=== PATIENT | female | born 1960 | race Caucasian/White ===

== ENCOUNTER 2023-03-15 12:36 | Observation (INO) | payer BC ==
[~2023-03-15] VITALS: Ht 172.7 cm; Wt 110.5 kg
--- NOTE | 2023-03-15 13:32 | NUR ---
XR to pt bedside at this time
[2023-03-15 13:46] LABS: BASOPHILS # (AUTO) 0.1 X10'3 (0-0.2); EOSINOPHILS % (AUTO) 0.6 % (0-6); HEMATOCRIT 42.6 % (35.0-45.0); HEMOGLOBIN 14.2 g/dl (12.0-16.0); LYMPHOCYTES # (AUTO) 1.6 X10'3 (1.1-4.8); LYMPHOCYTES % (AUTO) 26.2 % (21-51); MEAN CORPUSCULAR HEMOGLOBIN 30.9 PG (27.0-31.0); MEAN CORPUSCULAR HGB CONC 33.3 g/dL (33.0-36.5); MEAN CORPUSCULAR VOLUME 92.9 FL (78-98); MEAN PLATELET VOLUME 8.6 FL (7.4-10.4); MONOCYTES # (AUTO) 0.6 X10'3 (0-0.9); MONOCYTES % (AUTO) 9.2 % (2-12); NEUTROPHILS # (AUTO) 3.9 X10'3 (1.8-7.7); PLATELET COUNT 194 X10'3 (140-440); RED BLOOD COUNT 4.59 X10'6 (4.20-5.60); WHITE BLOOD COUNT 6.2 X10'3 (4.5-11.0)
[2023-03-15 14:03] LABS: ALANINE AMINOTRANSFERASE 23 U/L (12-78); ALBUMIN 3.5 G/DL (3.4-5.0); ALKALINE PHOSPHATASE 71 IU/L (46-116); ANION GAP 5 (8-16); ASPARTATE AMINO TRANSFERASE 24 U/L (10-37); BILIRUBIN,TOTAL 0.4 MG/DL (0.1-1.0); BLOOD UREA NITROGEN 20 MG/DL (7-18); BUN/CREATININE RATIO 26.7 (10.0-20.0); CALCIUM 8.4 MG/DL (8.5-10.1); CHLORIDE 105 MMOL/L (99-107); CREATININE 0.75 MG/DL (0.40-0.90); GLUCOSE 98 MG/DL (70-104); SODIUM 140 MMOL/L (135-145); TOTAL CARBON DIOXIDE 29.7 MMOL/L (24-32); TOTAL PROTEIN 6.9 G/DL (6.4-8.2); eGFR 78 ML/MIN
[2023-03-15 14:09] LABS: POTASSIUM 4.3 MMOL/L (3.5-5.1)
[2023-03-15] MEDS ORDERED: FURO20TA4 PO (17:28)
[2023-03-15] MEDS ORDERED: SACU1TAB PO (17:28)
[2023-03-15] MEDS ORDERED: NITR0.4T48 SL (17:28)
[2023-03-15] MEDS ORDERED: METO-384 PO (17:28)
[2023-03-15] MEDS ORDERED: DAPA10TA PO (17:28)
[2023-03-15] MEDS ORDERED: nitroGLYCERIN 0.4mg SUBLingual tab SL PRN (18:25)
[2023-03-15] MEDS ORDERED: potassium Cl 40MEQ/1/2NS 520ml 520 ML IV PRN (18:25)
[2023-03-15] MEDS ORDERED: magnesium 4gm in 100ml NS 100 ML IV PRN (18:25)
[2023-03-15] MEDS ORDERED: ondansetron/PF 4mg/2ml inj IV PRN (18:25)
[2023-03-15] MEDS ORDERED: mag hydrox/Alum hydrox/simeth 30ml oral suspension PO PRN (18:25)
[2023-03-15] MEDS ORDERED: magnesium Cl slow-release 64mg tablet PO PRN (18:25)
[2023-03-15] MEDS ORDERED: magnesium hydroxide 30ml (MOM) UD suspension PO PRN (18:25)
[2023-03-15] MEDS ORDERED: potassium Cl 20 mEq SR tablet PO PRN ×2 (18:25)
[2023-03-15] MEDS ORDERED: magnesium 2GM in 50ml NS 50 ML IV PRN (18:25)
[2023-03-15] MEDS ORDERED: acetaminophen 325mg tablet PO PRN ×2 (18:25)
[2023-03-15] MEDS: K and/or MAG REPLACEMENT MC SCH (18:28)
[2023-03-15] MEDS: normal saline 1000ml 1,000 ML IV SCH (18:37)
--- NOTE | 2023-03-15 18:45 | NUR ---
Admitting MD to pt bedside at this time
[2023-03-15 19:25] LABS: MAGNESIUM 2.3 MG/DL (1.5-2.4); PHOSPHORUS 3.5 MG/DL (2.3-4.5)
[2023-03-15] MEDS ORDERED: enoxaparin 40mg/0.4ml syringe SQ SCH (20:00)
[2023-03-15] MEDS: docusate sod 100mg capsule PO SCH (20:59)
[2023-03-15] MEDS: sacubitril/valsartan 24mg-26mg tablet PO SCH (20:59)
--- NOTE | 2023-03-15 23:59 | NUR ---
Arrived by justin to room 4012b alert and oriented.
[2023-03-16 00:15] VITALS: BP 148/74
--- NOTE | 2023-03-16 00:15 | NUR ---
Oriented to room and surrounding, vss.
[2023-03-16 02:25] VITALS: BP 122/65
[2023-03-16 06:39] LABS: HEMATOCRIT 40.9 % (35.0-45.0); HEMOGLOBIN 13.8 g/dl (12.0-16.0); MEAN CORPUSCULAR HEMOGLOBIN 31.4 PG (27.0-31.0); MEAN CORPUSCULAR HGB CONC 33.8 g/dL (33.0-36.5); MEAN CORPUSCULAR VOLUME 92.8 FL (78-98); MEAN PLATELET VOLUME 8.7 FL (7.4-10.4); PLATELET COUNT 156 X10'3 (140-440); RED BLOOD COUNT 4.41 X10'6 (4.20-5.60); RED CELL DISTRIBUTION WIDTH 14.3 % (11.5-14.5); WHITE BLOOD COUNT 4.4 X10'3 (4.5-11.0)
--- NOTE | 2023-03-16 06:40 | NUR ---
Report to Melissa WOODS.
[2023-03-16 07:02] LABS: ALBUMIN 3.2 G/DL (3.4-5.0); ANION GAP 5 (8-16); BLOOD UREA NITROGEN 15 MG/DL (7-18); BUN/CREATININE RATIO 18.3 (10.0-20.0); CALCIUM 8.7 MG/DL (8.5-10.1); CHLORIDE 107 MMOL/L (99-107); CREATININE 0.82 MG/DL (0.40-0.90); GLUCOSE 107 MG/DL (70-104); MAGNESIUM 2.3 MG/DL (1.5-2.4); SODIUM 142 MMOL/L (135-145); eGFR 70 ML/MIN
[2023-03-16] MEDS: sacubitril/valsartan 24mg-26mg tablet PO SCH (07:15)
[2023-03-16] MEDS: docusate sod 100mg capsule PO SCH (07:17)
[2023-03-16] MEDS ORDERED: DAPAGLIFLOZIN 10MG TABLET PO SCH (08:00)
[2023-03-16] MEDS ORDERED: furosemide 20MG tablet PO SCH (08:00)
[2023-03-16] MEDS: K and/or MAG REPLACEMENT MC SCH (08:00)
[2023-03-16 08:32] VITALS: BP 127/43
[2023-03-16] MEDS ORDERED: spironolactone 25 MG tablet PO SCH (10:55)
[2023-03-16 11:39] VITALS: BP_SYST 115
[2023-03-16] MEDS ORDERED: SPIR25TA PO (12:00)
[2023-03-16] MEDS ORDERED: METO-395 PO (12:00)
--- NOTE | 2023-03-16 13:42 | NUR ---
Saline lock discontinued with tip intact. Discharge instructions given, verbalized understanding no questions asked. Ambulated with daughter gait steady and refused wheelchair. ROME WOODS
[2023-03-17] MEDS ORDERED: metoprolol succinate 25mg (24-HOUR) SR. Tablet PO SCH (08:00)
== END 2023-03-16 13:30 | disposition home or self-care (01) ==
LOC: ER 12:36 → ED HOLD 18:24 → ORTHO 4S 23:59
PROVIDERS: ADMIT Family Medicine; ATTEND Family Medicine
DX: I20.9 Angina pectoris, unspecified (principal); I49.3 Ventricular premature depolarization; I50.22 Chronic systolic (congestive) heart failure; Z90.710 Acquired absence of both cervix and uterus; Z79.899 Other long term (current) drug therapy
CPT/HCPCS: 36415; 71045; 80048; 80053; 83735; 83880; 84100; 84443; 84484; 85025; 85027; 87081; 93005; 96360; 96361; 96372; 99285; G0378; J1650; J7030

== ENCOUNTER 2024-02-02 13:50 | Outpatient (CLI) | payer MEDICARE ==
[~2024-02-02 13:50] MED LIST: DAPA10TA PO; FURO20TA4 PO; METO-395 PO; NITR0.4T48 SL; SACU1TAB PO; SPIR25TA PO
== END 2024-02-02 23:59 | disposition home or self-care (01) ==
LOC: RAD 13:50
PROVIDERS: ATTEND Family Medicine
DX: F17.210 Nicotine dependence, cigarettes, uncomplicated (principal)
CPT/HCPCS: 71250; 71271